=== PATIENT | male | born 1995 | race Caucasian/White ===

== ENCOUNTER 2022-12-14 09:26 | Inpatient (IN) ==
[2022-12-14] MEDS ORDERED: SODIUM CHLORIDE 0.9% 1000ML 2,000 ML IV ONE (09:47)
--- NOTE | 2022-12-14 09:54 | Emergency Department Note ---
Impression & Plan Cholecystitis, Elevated LFTs, Hyperbilirubinemia ED Provider Note NAME: CATHERINE MISTRY AGE: 27 SEX: M : 1995 ARRIVES VIA: Walk-In INFORMANT: Patient ED PROVIDER(S): Sukumar Smiley DO CHIEF COMPLAINT: abdominal pain HPI: Patient is a 27-year-old male who presents to the ER for a yellowish hue. Patient notes that symptoms started several days ago with weakness and fatigue. He did have some swelling of his left cheek which resolved. Does have a little bit of a cough. No chest pain or shortness of breath. Admits to abdominal pain in the right upper quadrant associated with vomiting. He notes it is worse with eating. Followed up with his PCP who had blood work done and he was found to have a transaminitis as well as an elevated bilirubin. Long and strep were negative. He came in today as symptoms are getting worse. Denies any dysuria, urgency, or frequency. No other exacerbating or remitting factors. PAST MEDICAL HISTORY:See Below PAST SURGICAL HISTORY:See Below FAMILY HISTORY:See Below SOCIAL HISTORY:See Below HOME MEDICATIONS:See Below ALLERGIES:See Below VITALS:See Below PHYSICAL EXAMINATION: GENERAL: Sitting up in bed, alert, well appearing, well nourished, no distress, non-toxic EYE EXAM: Scleral icterus OROPHARYNX: mucous membranes are moist LUNGS: Clear to auscultation. Normal chest wall mechanics HEART: no murmurs, S1 normal and S2 normal ABDOMEN: abdomen soft, non-tender, normo-active bowel sounds, no masses, no rebound or guarding. BACK: Back is symmetrical on inspection and there is no deformity, no midline tenderness, no CVA tenderness. SKIN: no rashes and no bruising UPPER EXTREMITIES: upper extremities are grossly normal. LOWER EXTREMITIES: No pitting edema. NEURO EXAM: Normal sensorium, cranial nerves II-XII grossly intact, normal speech, no gross weakness of arms, no gross weakness of legs. MEDICAL DECISION MAKING: Patient is a 27-year-old male who presents ER referred by PCP for transaminitis and elevated bilirubin. IV was established blood was obtained. External records were reviewed. Labs show no leukocytosis or anemia. INR was unremarkable. BMP was fairly unremarkable with the exception of a slightly elevated glucose at 120. Transaminitis of 300s with a T. bili of 6 and a direct bili of 3.4. Lipase was normal. Hepatitis panel was ordered. COVID was negative. Discussed with hospitalist Dr. Escalera, general surgery Dr. Dangelo and gastroenterology Dr. Roberson. They will evaluate the patient and recommended admission to the hospitalist. Patient was updated bedside as well. Was given IV fluids and Zosyn in case as suggested by the CT that this was cholecystitis. Triage Nursing notes reviewed. Limited review of prior medical records performed Vital Signs: reviewed and remarkable for tachy Differential diagnosis: Differential diagnoses includes but is not limited to gastritis, peptic ulcer disease, GERD, gallbladder disease, pancreatitis, small bowel obstruction, appendicitis, diverticulitis, hernia, urinary tract infection, torsion, /ectopic (if female), perforation, trauma, infectious. ER treatment provided: See below Diagnostics interpreted by me include EKG and cardiac monitoring as listed below: -Cardiac Monitoring: An order was placed for continuous cardiac monitoring. The monitor shows a rate of 101 with sinus rhythm. -ECG: none -Laboratory studies:Interpreted by me as stated above in MDM and shown below. Imaging studies: Xrays: As interpreted by me:none CTs show: CT abdomen pelvis shows cholecystitis versus duodenitis. CT abdomen pelvis per my read shows no obvious obstruction Consultation(s): As described in MDM Procedures:none Critical Care: None Past Med/Surg History Medical History Elevated LFTs No pertinent past medical history Surgical History No pertinent past surgical history Family History Grandmother (Maternal) Colorectal cancer Grandfather (Paternal) Leukemia Mother Hypertension Denies family history of Ovarian cancer Prostate cancer Myocardial infarction Breast cancer Social History Smoking Status: Former smoker Second Hand Exposure: No; Hx Alcohol Use: Yes Alcohol Intake Frequency: 2-3 x/Week Hx Substance Use: No Preferred Language: Swedish Visual Impairment: No Limitations Hearing Ability: Normal Whiskey Filterer Required: No Beliefs That Will Affect Care: None marital status: single Current Living Situation: Alone current occupational status: student How many Children do You have: 0 Feels Safe at Home: Yes Childhood Exposure to Second-Hand Smoke: No caffeine: Yes (tea) during the past year weight has: remained stable Dental Care, Regularly: Yes Physical Activity Frequency: 3-4 Times per Week Physical Activity Frequency Comment: cardio/ weight lifting Seatbelt Use: always Sunscreen Use: Yes Allergies Allergies Allergy/AdvReac Type Severity Reaction Status Date / Time No Known Allergies Allergy Unverified 12/14/22 12:15 Home Meds Home Medications Medication Instructions Recorded Confirmed fluticasone propionate 50 1 spray intranasal DAILY PRN Nasal 03/11/21 12/14/22 mcg/actuation nasal Congestion spray,suspension (24 Hour Allergy Relief) ibuprofen 200 mg tablet (Advil) 400 - 600 mg PO TID PRN Pain 12/14/22 12/14/22 Previous Rx's Medication Instructions Recorded amoxicillin 875 mg-potassium 1 tab PO BID 7 days #14 tabs 12/09/22 clavulanate 125 mg tablet Results & Data (ED) Vital Signs Vital Signs - 24 hr 12/14/22 09:28 12/14/22 10:46 Temperature 36.7 C Temperature Source Temporal Artery Scan Pulse Rate 110 H Respiratory Rate 16 Blood Pressure 139/94 Blood Pressure Mean 109 Pulse Oximetry 96 98 Oxygen Delivery Method Room Air Sepsis Recent Fever Within 48 Hours No Sepsis New/Unexplained Change in Mental Status N/A Sepsis Action Taken by Nursing No Action Required Laboratory Data 12/14/22 09:58 12/14/22 09:58 Lab Results 12/14/22 12/14/22 12/14/22 Range/Units 09:58 09:58 09:58 WBC 10.69 (4.8-10.8) K/ul RBC 5.47 (4.70-6.10) M/uL Hgb 16.1 (14.0-18.0) g/dl Hct 45.7 (42.0-52.0) % MCV 83.5 (80.0-100.0) fL MCH 29.4 (25.0-34.0) pg MCHC 35.2 (32.0-36.0) g/dL RDW Std Deviation 36.3 L (36.4-46.3) fL RDW Coeff of Denny 11.9 (11.5-14.5) % Plt Count 250 (130-400) K/uL MPV 10.7 (9.4-12.4) fL Immature Gran % (Auto) 0.6 % Neut % (Auto) 78.3 % Lymph % (Auto) 7.3 % Long % (Auto) 10.9 % Eos % (Auto) 2.5 % Baso % (Auto) 0.4 % Neut # (Auto) 8.38 H (1.40-6.50) K/uL Lymph # (Auto) 0.78 L (1.2-3.4) K/uL Long # (Auto) 1.16 H (0.11-0.59) K/uL Eos # (Auto) 0.27 (0-0.50) K/uL Baso # (Auto) 0.04 (0-0.2) K/uL Immature Gran # (Auto) 0.06 (0.01-0.20) K/uL Platelet Estimate Normal (Normal) PT 10.9 (9.0-12.0) Seconds INR 1.0 (0.9-1.1) Sodium 135 L (136-145) mmol/L Potassium 3.6 (3.5-5.1) mmol/L Chloride 96 L (98-107) mmol/L Carbon Dioxide 30 (21-32) mmol/L Anion Gap 9 (3-11) BUN 6 (6-23) mg/dl Creatinine 0.97 (0.6-1.4) mg/dl Est Cr Clr Drug Dosing 120.8 ml/min Est GFR ( Amer) 122.6 ml/min Est GFR (Non-Af Amer) 105.8 ml/min BUN/Creatinine Ratio 6.2 L (10-20) Glucose 120 H (70-99(Fasting)) mg/dl Calcium 9.7 (8.6-10.3) mg/dl Total Bilirubin 6.1 H (0.2-1.0) mg/dl Direct Bilirubin TNP AST 216 H (13-39) U/L ALT 405 H (7-52) U/L Alkaline Phosphatase 208 H (34-104) U/L Total Protein 7.7 (6.0-8.3) gm/dl Albumin 4.4 (3.4-5.0) gm/dl Lipase 32 (11-82) U/L SARS-CoV-2, RNA, NAAT (NEGATIVE) 12/14/22 12/14/22 Range/Units 12:39 12:47 WBC (4.8-10.8) K/ul RBC (4.70-6.10) M/uL Hgb (14.0-18.0) g/dl Hct (42.0-52.0) % MCV (80.0-100.0) fL MCH (25.0-34.0) pg MCHC (32.0-36.0) g/dL RDW Std Deviation (36.4-46.3) fL RDW Coeff of Denny (11.5-14.5) % Plt Count (130-400) K/uL MPV (9.4-12.4) fL Immature Gran % (Auto) % Neut % (Auto) % Lymph % (Auto) % Long % (Auto) % Eos % (Auto) % Baso % (Auto) % Neut # (Auto) (1.40-6.50) K/uL Lymph # (Auto) (1.2-3.4) K/uL Long # (Auto) (0.11-0.59) K/uL Eos # (Auto) (0-0.50) K/uL Baso # (Auto) (0-0.2) K/uL Immature Gran # (Auto) (0.01-0.20) K/uL Platelet Estimate (Normal) PT (9.0-12.0) Seconds INR (0.9-1.1) Sodium (136-145) mmol/L Potassium (3.5-5.1) mmol/L Chloride (98-107) mmol/L Carbon Dioxide (21-32) mmol/L Anion Gap (3-11) BUN (6-23) mg/dl Creatinine (0.6-1.4) mg/dl Est Cr Clr Drug Dosing ml/min Est GFR ( Amer) ml/min Est GFR (Non-Af Amer) ml/min BUN/Creatinine Ratio (10-20) Glucose (70-99(Fasting)) mg/dl Calcium (8.6-10.3) mg/dl Total Bilirubin (0.2-1.0) mg/dl Direct Bilirubin 3.4 H AST (13-39) U/L ALT (7-52) U/L Alkaline Phosphatase (34-104) U/L Total Protein (6.0-8.3) gm/dl Albumin (3.4-5.0) gm/dl Lipase (11-82) U/L SARS-CoV-2, RNA, NAAT NEGATIVE (NEGATIVE) Administered Medications Discontinued Medications Sodium Chloride (Nss 1000ml) 2,000 mls @ 999 mls/hr IV .Q2H1M ONE Stop: 12/14/22 11:47 Last Admin: 12/14/22 10:06 Dose: 999 mls/hr Documented By: SACHI Piperacillin Sod/Tazobactam Sod (Zosyn) 4.5 gm in 120 mls @ 240 mls/hr IV NOW ONE Stop: 12/14/22 12:51 Last Admin: 12/14/22 12:41 Dose: 240 mls/hr Documented By: BLADIMIR Ioversol (Optiray 350 100ml) 88 ml IV ONCE ONE Stop: 12/14/22 11:39 Last Admin: 12/14/22 11:39 Dose: 88 ml Documented By: REGINE Imaging Data Radiologist's Impression: Abdomen/Pelvis CT 12/14/22 09:[address] WITH IV CONTRAST CT DOSE: 1163.68 mGycm HISTORY: Acute right-sided abdominal pain with jaundice jaundice ruq abd pain TECHNIQUE: Multiaxial CT images of the abdomen and pelvis were performed following the IV administration of 88 cc of Optiray, A dose lowering technique was utilized adhering to the principles of ALARA. COMPARISON STUDY: Liver ultrasound 12/13/2022 FINDINGS: Clear lung bases. No pneumatosis or pneumoperitoneum. Unremarkable spleen, adrenal glands and pancreas. The liver is within normal limits. Patency of the hepatic and portal veins. Mild nonspecific wall thickening of the gallbladder with additional wall thickening of the common bile duct. Inflammatory stranding within the rebeka hepatis is noted with periportal lymph nodes measuring up to 1.4 x 2.8 cm. Inflammatory stranding surrounds the duodenum and pancreaticoduodenal groove. Unremarkable kidneys without hydronephrosis. Unremarkable urinary bladder. Aorta and IVC are unremarkable. No bowel obstruction. Retained enteric contrast within the large bowel. Normal appendix. Unremarkable soft tissues. There is no acute fracture. IMPRESSION: 1. Nonspecific gallbladder wall thickening is noted with inflammatory stranding within the rebeka hepatis surrounding the duodenum and extending into the pancreaticoduodenal groove. Findings may be secondary to acute cholecystitis versus duodenitis. 2. Mild wall thickening of the common bile duct is likely reactive. Correlate with laboratory analysis to exclude cholangitis. 3. Mild periportal lymphadenopathy, likely reactive. 4. No bowel obstruction or pneumoperitoneum. 5. Normal appendix. ACT 112: Negative or not required by law. The above report was generated using voice recognition software. It may contain grammatical, syntax or spelling errors. Electronically signed by: Sang Triplett M.D. 12/14/2022 12:09 PM Discharge Plan Visit Data Chief Complaint: Illness Stated Complaint: ABDPAIN,NAUSEA,EDEMA IN MOUTH,FATIGUE,JUANDICE12/13 ED Provider: Sukumar Smiley Discharge Problem: Cholecystitis, Elevated LFTs, Hyperbilirubinemia Forms Stand Alone Forms: [facility] [place] Novalact Prescriptions Prescriptions: No Action fluticasone propionate [24 Hour Allergy Relief] 50 mcg/actuation spray,suspension 1 spray intranasal DAILY PRN (Reason: Nasal Congestion) Rx Instructions: administer into each nostril amoxicillin-pot clavulanate 875-125 mg tablet 1 tab PO BID 7 Days Qty: 14 0RF Hold Instructions: Elevated LFT ibuprofen [Advil] 200 mg Tablet 400 - 600 mg PO TID PRN (Reason: Pain) Referrals Referrals: Anton Jain CRNP [Primary Care Provider] -
[2022-12-14 10:49] LABS: Prothrombin Time 10.9 Seconds (9.0-12.0)
[2022-12-14 11:30] LABS: Basophils # (auto) 0.04 K/uL (0-0.2); Basophils % (auto) 0.4 %; Eosinophils # (auto) 0.27 K/uL (0-0.50); Eosinophils % (auto) 2.5 %; Hematocrit (blood only) 45.7 % (42.0-52.0); Hemoglobin 16.1 g/dl (14.0-18.0); Immature Granulocytes # (auto) 0.06 K/uL (0.01-0.20); Immature Granulocytes % (auto) 0.6 %; Lymphocytes # (auto) 0.78 K/uL (1.2-3.4); Lymphocytes % (auto) 7.3 %; Mean Corpuscular Hemoglobin 29.4 pg (25.0-34.0); Mean Corpuscular Hgb Conc 35.2 g/dL (32.0-36.0); Mean Corpuscular Volume 83.5 fL (80.0-100.0); Mean Platelet Volume 10.7 fL (9.4-12.4); Monocytes # (auto) 1.16 K/uL (0.11-0.59); Monocytes % (auto) 10.9 %; Neutrophils # (auto) 8.38 K/uL (1.40-6.50); Neutrophils % (auto) 78.3 %; Platelet Count 250 K/uL (130-400); Platelet Estimate Normal (Normal); RDW Coefficient of Variation 11.9 % (11.5-14.5); RDW Standard Deviation 36.3 fL (36.4-46.3); Red Blood Count 5.47 M/uL (4.70-6.10); White Blood Count 10.69 K/ul (4.8-10.8)
[2022-12-14] MEDS ORDERED: OPTIRAY 350 100ml IV ONE (11:38)
--- NOTE | 2022-12-14 12:11 | CT Scan Report ---
ABDOMEN AND PELVIS CT WITH IV CONTRAST CT DOSE: 1163.68 mGycm HISTORY: Acute right-sided abdominal pain with jaundice jaundice ruq abd pain TECHNIQUE: Multiaxial CT images of the abdomen and pelvis were performed following the IV administrat ion of 88 cc of Optiray, A dose lowering technique was utilized adhering to the principles of ALARA. COMPARISON STUDY: Liver ultrasound 12/13/2022 FINDINGS: Clear lung bases. No pneumatosis or pneumoperitoneum. Unremarkable spleen, adrenal glands a nd pancreas. The liver is within normal limits. Patency of the hepatic and portal veins. Mild nonspec ific wall thickening of the gallbladder with additional wall thickening of the common bile duct. Infl ammatory stranding within the rebeka hepatis is noted with periportal lymph nodes measuring up to 1.4 x 2.8 cm. Inflammatory stranding surrounds the duodenum and pancreaticoduodenal groove. Unremarkable kidneys without hydronephrosis. Unremarkable urinary bladder. Aorta and IVC are unremark able. No bowel obstruction. Retained enteric contrast within the large bowel. Normal appendix. Unrema rkable soft tissues. There is no acute fracture. IMPRESSION: 1. Nonspecific gallbladder wall thickening is noted with inflammatory stranding within the rebeka hepa tis surrounding the duodenum and extending into the pancreaticoduodenal groove. Findings may be secon bladimir to acute cholecystitis versus duodenitis. 2. Mild wall thickening of the common bile duct is likely reactive. Correlate with laboratory analysi s to exclude cholangitis. 3. Mild periportal lymphadenopathy, likely reactive. 4. No bowel obstruction or pneumoperitoneum. 5. Normal appendix. ACT 112: Negative or not required by law. The above report was generated using voice recognition software. It may contain grammatical, syntax o r spelling errors. Electronically signed by: Sang Triplett M.D. 12/14/2022 12:09 PM
[2022-12-14 12:14] LABS: Alanine Aminotransferase 405 U/L (7-52); Albumin Level 4.4 gm/dl (3.4-5.0); Alkaline Phosphatase 208 U/L (34-104); Anion Gap 9 (3-11); Aspartate Aminotransferase 216 U/L (13-39); BUN Creatinine Ratio 6.2 (10-20); Bilirubin,Total 6.1 mg/dl (0.2-1.0); Blood Urea Nitrogen 6 mg/dl (6-23); Calcium 9.7 mg/dl (8.6-10.3); Carbon Dioxide 30 mmol/L (21-32); Chloride 96 mmol/L (98-107); Creatinine Clr Calc Pharmacy 120.8 ml/min; Est GFR (African American) 122.6 ml/min; Est GFR (Non-African American) 105.8 ml/min; Glucose 120 mg/dl (70-99(Fasting)); Lipase 32 U/L (11-82); Potassium 3.6 mmol/L (3.5-5.1); Sodium 135 mmol/L (136-145); Total Protein 7.7 gm/dl (6.0-8.3)
[2022-12-14] MEDS ORDERED: PIPERACILLIN/TAZOBACTAM 4.5 GM/120 ML BAG IV ONE (12:22)
--- NOTE | 2022-12-14 13:25 | Surgery Consultation ---
Date of Consultation December 14, 2022 Assessment & Plan (1) Elevated LFTs: pt is a 27 year-old male who presents to ER with one week history nausea, vomiting, fatigue. elevated LFTs, T, bile 6.1. IMP: Elevated LFTs, could not R/O acute cholecystitis, plan, Medicine team will admit pt to hospital, consult GI, HIDA scan per-GI doctor. conservative treatment now, NPO, IV fluid, repeat labs in morning, pt agreed with the plan, I answered all questions, D/W ER attending. will f/u History of Present Illness Reason for Consultation: cholecystitis Requesting Physician: Sukumar Vizcarra History of Present Illness CHIEF COMPLAINT: abdominal pain HPI: Patient is a 27-year-old male who presents to the ER for a yellowish hue. Patient notes that symptoms started several days ago with weakness and fatigue. He did have some swelling of his left cheek which resolved. Does have a little bit of a cough. No chest pain or shortness of breath. Admits to abdominal pain in the right upper quadrant associate with vomiting. He notes it is worse with eating. Followed up with his PCP who had blood work done and he was found to have a transaminitis as well as an elevated bilirubin. [place] and strep were negative. He came in today as symptoms are getting worse. Denies any dysuria urgency or frequency. No other exacerbating or remitting factors. I ( Roscoe Dangelo MD ) got a call for consult cholecystitis, I reviewed pt's H/P, labs and CT scan with pt, pt has no significant RUQ pain, some nausea and vomiting 2 days ago, no vomiting today, some chills and fever, but today no fever. 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, urine dark color, pt denies cough, no chest pain, but left face swelling 1 week ago, Allergies Allergy/AdvReac Type Severity Reaction Status Date / Time No Known Allergies Allergy Unverified 12/14/22 12:15 Home Medications Medication Instructions Recorded Confirmed Type fluticasone propionate 50 1 spray intranasal DAILY PRN Nasal 03/11/21 12/14/22 History mcg/actuation nasal Congestion spray,suspension (24 Hour Allergy Relief) amoxicillin 875 mg-potassium 1 tab PO BID 7 days #14 tabs 12/09/22 12/14/22 Rx clavulanate 125 mg tablet ibuprofen 200 mg tablet (Advil) 400 - 600 mg PO TID PRN Pain 12/14/22 12/14/22 History Patient History Medical History Elevated LFTs No pertinent past medical history Surgical History No pertinent past surgical history Family History Grandmother (Maternal) Colorectal cancer Grandfather (Paternal) Leukemia Mother Hypertension Denies family history of Ovarian cancer Prostate cancer Myocardial infarction Breast cancer Social History Smoking Status: Former smoker Second Hand Exposure: No; Hx Alcohol Use: Yes Alcohol Intake Frequency: 2-3 x/Week Hx Substance Use: No Preferred Language: Japanese Visual Impairment: No Limitations Hearing Ability: Normal Seismograph Observer Required: No Beliefs That Will Affect Care: None marital status: single Current Living Situation: Alone current occupational status: student How many Children do You have: 0 Feels Safe at Home: Yes Childhood Exposure to Second-Hand Smoke: No caffeine: Yes (tea) during the past year weight has: remained stable Dental Care, Regularly: Yes Physical Activity Frequency: 3-4 Times per Week Physical Activity Frequency Comment: cardio/ weight lifting Seatbelt Use: always Sunscreen Use: Yes Review of Systems Constitutional: as per Subjective / HPI Eyes: as per Subjective / HPI Respiratory: as per Subjective / HPI Cardiovascular: as per Subjective / HPI Gastrointestinal: as per Subjective / HPI Genitourinary: + as per Subjective / HPI Neurologic: as per Subjective / HPI Psychiatric: as per Subjective / HPI Endocrine: as per Subjective / HPI Hematologic / Lymphatic: as per Subjective / HPI Physical Exam Constitutional: WD/WN, vitals as above Eyes: PERRL, conjunctivae normal, anicteric sclerae Neck: trachea midline, no thyromegaly Respiratory: normal respiratory effort, lungs clear to auscultation Cardiovascular: RRR, no murmur, no edema Gastrointestinal (Abdomen): soft, no significant tenderness at RUQ, no rebound pain, no distend, BS +, Musculoskeletal: no cyanosis or clubbing, extremities motor strength 5/5 Neurologic: patellar DTR's 2+ bilat, sensation intact Psychiatric: A+Ox3, euthymic affect Results & Data Vital Signs (Past 12 Hours) Vital Signs Temp Pulse Resp BP Pulse Ox O2 Del Method 12/14/22 10:46 98 Room Air 12/14/22 09:28 36.7 C 110 H 16 139/94 96 Laboratory Results Abnormal lab results 12/14/22 12/14/22 12/14/22 Range/Units 09:58 09:58 12:47 RDW Std Deviation 36.3 L (36.4-46.3) fL Neut # (Auto) 8.38 H (1.40-6.50) K/uL Lymph # (Auto) 0.78 L (1.2-3.4) K/uL [place] # (Auto) 1.16 H (0.11-0.59) K/uL Sodium 135 L (136-145) mmol/L Chloride 96 L (98-107) mmol/L BUN/Creatinine Ratio 6.2 L (10-20) Glucose 120 H (70-99(Fasting)) mg/dl Total Bilirubin 6.1 H (0.2-1.0) mg/dl Direct Bilirubin 3.4 H (0-0.2) mg/dl AST 216 H (13-39) U/L ALT 405 H (7-52) U/L Alkaline Phosphatase 208 H (34-104) U/L Diagnostic Findings ABDOMEN AND PELVIS CT WITH IV CONTRAST CT DOSE: 1163.68 mGycm HISTORY: Acute right-sided abdominal pain with jaundice jaundice ruq abd pain TECHNIQUE: Multiaxial CT images of the abdomen and pelvis were performed following the IV administration of 88 cc of Optiray, A dose lowering technique was utilized adhering to the principles of ALARA. COMPARISON STUDY: Liver ultrasound 12/13/2022 FINDINGS: Clear lung bases. No pneumatosis or pneumoperitoneum. Unremarkable spleen, adrenal glands and pancreas. The liver is within normal limits. Patency of the hepatic and portal veins. Mild nonspecific wall thickening of the gallbladder with additional wall thickening of the common bile duct. Inflammatory stranding within the rebeka hepatis is noted with periportal lymph nodes measuring up to 1.4 x 2.8 cm. Inflammatory stranding surrounds the duodenum and pancreaticoduodenal groove. Unremarkable kidneys without hydronephrosis. Unremarkable urinary bladder. Aorta and IVC are unremarkable. No bowel obstruction. Retained enteric contrast within the large bowel. Normal appendix. Unremarkable soft tissues. There is no acute fracture. IMPRESSION: 1. Nonspecific gallbladder wall thickening is noted with inflammatory stranding within the rebeka hepatis surrounding the duodenum and extending into the pancreaticoduodenal groove. Findings may be secondary to acute cholecystitis versus duodenitis. 2. Mild wall thickening of the common bile duct is likely reactive. Correlate with laboratory analysis to exclude cholangitis. 3. Mild periportal lymphadenopathy, likely reactive. 4. No bowel obstruction or pneumoperitoneum. 5. Normal appendix. ACT 112: Negative or not required by law.
--- NOTE | 2022-12-14 13:49 | History & Physical Report ---
Date of Service December 14, 2022 Assessment & Plan (1) Elevated LFTs: Plan: 27 yo M with elevated LFTs, total bilirubin with worsening abdominal pain after eating concerning for acute cholecystitis +/- cholangitis Acute/unstable - Admit to med/surg - Keep NPO - Reviewed PCP notes from 12/09 and 12/13 - Reviewed CBC and CMP today - Start on LR at 125 ml/hr - Provide pain control with Dilaudid 1mg IV q3h prn abd pain - Antiemetics with Zofran 4mg IV q4h prn n/v - Formal consult placed to GI, appreciate assistance, recommendation is to proceed with ERCP - Dr. Wilburn to perform procedure - Consult placed also to general surgery, Dr. Dangelo, appreciate assistance - Continue empiric broad spectrum antibiotics with Zosyn 3.375mg IV q8 - IV APAP for mild pain, fever, headache - Repeat CBC with diff and CMP in AM Plan Low risk for DVT, pt can ambulate. In addition, patient may need to proceed with surgical intervention, therefore defer on chemoprophylaxis. Above plan of care has been d/w Dr. Jones who has also seen and evaluated this patient. Further orders will be implemented as warranted. History of Present Illness Chief Complaint: abdominal pain, n/v Primary Care Provider: LANRE Warren Melvin Denney is a 27 yo WM with no past medical history who presented to the ER today c/o RUQ abdominal pain, worse after eating with associated n/v. Patient reports that he started with nonspecific symptoms last of left facial swelling in the area of his parotid gland that was also associated with a sore throat and dry cough. He contacted his PCP, he was started on an empiric course of Augmentin and symptoms resolved after 2 days. On Monday into Monday, he began experiencing nausea, increased belching, and abdominal pain worse after eating. He notes that he wasn't really eating or drinking, felt more fatigued and feverish. He contacted his PCP on Monday for follow up and was seen on Monday12/13/22 and labwork was ordered. Patient contacted this AM on 12/14 and notified he had elevated LFTs including an elevated total bilirubin. He had a RUQ ultrasound which showed a mildly distended gallbladder w/o cholelithiasis or sonographic evidence of acute cholecystitis. No biliary ductal dilatation was reported. He reported feeling slightly better yesterday and attempted to have some chicken broth and drank 2 Ensures. Unfortunately, this morning, patient woke up and vomited. He subsequently presented to the ER today for further evaluation. His work up today demonstrates persistently elevated LFTs and total bilirubin of 6.1. He underwent a CT of his abdomen and pelvis which shows nonspecific gallbladder wall thickening with inflammatory stranding within the rebeka hepatis surrounding the duodenum and extending into the pancreaticoduodenal groove as well as mild wall thickening of the common bile duct. He was medicated with a dose of Zosyn to cover for possible cholangitis, as well IVF and has been referred to the hospitalists for admission. Case has also been discussed with GI and general surgery. Allergies Allergy/AdvReac Type Severity Reaction Status Date / Time No Known Allergies Allergy Unverified 12/14/22 12:15 Home Medications Medication Instructions Recorded Confirmed Type fluticasone propionate 50 1 spray intranasal DAILY PRN Nasal 03/11/21 12/14/22 History mcg/actuation nasal Congestion spray,suspension (24 Hour Allergy Relief) amoxicillin 875 mg-potassium 1 tab PO BID 7 days #14 tabs 12/09/22 12/14/22 Rx clavulanate 125 mg tablet ibuprofen 200 mg tablet (Advil) 400 - 600 mg PO TID PRN Pain 12/14/22 12/14/22 History Past Med/Surg History Medical History Elevated LFTs No pertinent past medical history Surgical History No pertinent past surgical history Family History Grandmother (Maternal) Colorectal cancer Grandfather (Paternal) Leukemia Mother Hypertension Denies family history of Ovarian cancer Prostate cancer Myocardial infarction Breast cancer Social History Smoking Status: Never smoker Second Hand Exposure: No; Hx Alcohol Use: No Hx Substance Use: No Preferred Language: Luxembourgish Communication Ability: Effective Visual Impairment: No Limitations Hearing Ability: Normal 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 Beliefs That Will Affect Care: None marital status: single Current Living Situation: Significant Other current occupational status: student How many Children do You have: 0 Feels Safe at Home: Yes Safety Concerns: Feels Safe At This Time Childhood Exposure to Second-Hand Smoke: No caffeine: Yes (tea) during the past year weight has: remained stable Dental Care, Regularly: Yes Physical Activity Frequency: 3-4 Times per Week Physical Activity Frequency Comment: cardio/ weight lifting Seatbelt Use: always Sunscreen Use: Yes Assistive Devices: Glasses Physical Exam Physical Exam: GENERAL: 27 yo well-developed, well-nourished WM. NAD. LUNGS: Clear to auscultation bilaterally. No w/r/r CARDIOVASCULAR: Regular rate and rhythm. ABDOMEN: Soft, nondistended, tender to palpation in RUQ. No rigidity, rebound, or guarding. BS normoactive x 4 quad. EXTREMITIES: No edema. Non-tender. Peripheral pulses +2/4. SKIN: b/l scleral icterus Results & Data Results & Data Vital Signs (Past 12 Hours) Vital Signs Temp Pulse Resp BP Pulse Ox O2 Del Method 12/14/22 10:46 98 Room Air 12/14/22 09:28 36.7 C 110 H 16 139/94 96 Laboratory Results 12/14/22 09:58 12/14/22 09:58 Diagnostic Findings Abdomen/Pelvis CT 12/14/22 09:[address] WITH IV CONTRAST CT DOSE: 1163.68 mGycm HISTORY: Acute right-sided abdominal pain with jaundice jaundice ruq abd pain TECHNIQUE: Multiaxial CT images of the abdomen and pelvis were performed following the IV administration of 88 cc of Optiray, A dose lowering technique was utilized adhering to the principles of ALARA. COMPARISON STUDY: Liver ultrasound 12/13/2022 FINDINGS: Clear lung bases. No pneumatosis or pneumoperitoneum. Unremarkable spleen, adrenal glands and pancreas. The liver is within normal limits. Patency of the hepatic and portal veins. Mild nonspecific wall thickening of the gallbladder with additional wall thickening of the common bile duct. Inflammatory stranding within the rebeka hepatis is noted with periportal lymph nodes measuring up to 1.4 x 2.8 cm. Inflammatory stranding surrounds the duodenum and pancreaticoduodenal groove. Unremarkable kidneys without hydronephrosis. Unremarkable urinary bladder. Aorta and IVC are unremarkable. No bowel obstruction. Retained enteric contrast within the large bowel. Normal appendix. Unremarkable soft tissues. There is no acute fracture. IMPRESSION: 1. Nonspecific gallbladder wall thickening is noted with inflammatory stranding within the rebeka hepatis surrounding the duodenum and extending into the pancreaticoduodenal groove. Findings may be secondary to acute cholecystitis versus duodenitis. 2. Mild wall thickening of the common bile duct is likely reactive. Correlate with laboratory analysis to exclude cholangitis. 3. Mild periportal lymphadenopathy, likely reactive. 4. No bowel obstruction or pneumoperitoneum. 5. Normal appendix. ACT 112: Negative or not required by law. The above report was generated using voice recognition software. It may contain grammatical, syntax or spelling errors. Electronically signed by: Sang Triplett M.D. 12/14/2022 12:09 PM Supervising Physician Co-Signing Physician Notes Patient seen and examined, chart reviewed, case discussed with Linda Araiza PA-C and I agree with the assessment and plan as above except as otherwise noted Labs and images reviewed Melvin is a 27-year-old male who presents with right upper quadrant pain worsened with meals and scleral icterus. CT shows nonspecific gallbladder wall thickening suspicious for acute cholecystitis, mild wall thickening of the common bile duct. LFTs and bilirubin are elevated. Surgery and GI are consulted, anticipate ERCP tomorrow and subsequent cholecystectomy. Continue Zosyn every 8 for cholecystitis. N.p.o at midnight, pain control, fluids as noted. Agree with recommendations and management above. At bedside exam patient has tenderness on deep right upper quadrant palpation, otherwise abdomen is soft and nontender. Heart rate is regular, lungs are clear. Warm and well- perfused. Scleral icterus is present, mild. PG Care Time/CCT Total # of Minutes Spent Total Time Spent with Patient: Total time spent is greater than 50% in coordination of care (as documented) at patient's floor/unit and/or counseling patient: Coding Level of Care Code 86620 INT INP/OBS CARE MIN Diagnoses Elevated LFTs R79.89
--- NOTE | 2022-12-14 14:45 | Gastrointestinal Consultation ---
Date of Consultation December 14, 2022 Assessment & Plan (1) Hyperbilirubinemia: (2) Elevated LFTs: Plan Discussed with advanced endo attending Dr. Wilburn about his labs and decision was made for ercp tomorrow Supervising Physician Co-Signing Physician Notes 27 yo male with fatigue, post prandial pain since end of last, with parotid swelling on augmentin since Monday, admitted for abd pain, fatigue, and a cholestatic lft pattern on labs with imaging concerning for cholecystitis. Currently he hemodynamically stable other than mild tachycardia that appears to be a sinus rhythm. Given the degree of tb rise (over 4) and wbc count elevation, will plan for ercp tomorrow afternoon. No reports of prior episodes of pancreatitis. Ok to try liqids/soft thru midnight then npo after midnite. Continue IV fluids, iv zosyn for now. 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 He is with his significant other and mother in the ED. He reports at the end of last week he felt fatigued and had a feeling like his left cheek was swollen and a sore throat - diagnosed with ?parotitis started on augmentin, strep and ebv negative as part of his work-up. On monday, his fiance noted he was sweaty and had a temp to 100 despite taking Augmentin. He also noted during this time feeling a bit run down. He also felt since /Mondayof last week that he was having post prandial pain in his abdomen on both sides but a little more prominent in his right upper quadrant. Given persistence of his symptoms, saw his pcp as an outpatient yesterday with a work- up showing a wbc count 12, tb elevation, ast/alt/alk phos elevation and an abd martin limited with findings concerning for cholecystitis. He came into the er this am given lab findings and continued ongoing symptoms of fatigue, jaundice, and abdominal pain more prominent in the ruq that is primarily post prandial. 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 He Lives with his significant other and two pets without any scratches he recalls from his pets or recent sick contacts at home. The only regular medication he uses is a nasal spray for allergy type symptoms. Workup in the ed thus far shows him to be afebile, slightly tachycardic, stable bp, and wbc count now normalized from 12 yesterday to 10, tb is 6 with ongoing alt elevation in addition to mild ast/alk phos elevation (in high 100-200 range). He does no appear to be in clinical distress, exam significant for mild scleral icterus. No prior episodes of pancreatitis reported. As a result of the issue with his cheek, he does feel he has a slightly limited ability to open his jaw. 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, living with his significant other and two pets, no drug use reported Fam hx:none Allergies Allergy/AdvReac Type Severity Reaction Status Date / Time No Known Allergies Allergy Unverified 12/14/22 12:15 Home Medications Medication Instructions Recorded Confirmed Type fluticasone propionate 50 1 spray intranasal DAILY PRN Nasal 03/11/21 12/14/22 History mcg/actuation nasal Congestion spray,suspension (24 Hour Allergy Relief) amoxicillin 875 mg-potassium 1 tab PO BID 7 days #14 tabs 12/09/22 12/14/22 Rx clavulanate 125 mg tablet ibuprofen 200 mg tablet (Advil) 400 - 600 mg PO TID PRN Pain 12/14/22 12/14/22 History Patient History Medical History Elevated LFTs No pertinent past medical history Surgical History No pertinent past surgical history Family History Grandmother (Maternal) Colorectal cancer Grandfather (Paternal) Leukemia Mother Hypertension Denies family history of Ovarian cancer Prostate cancer Myocardial infarction Breast cancer Social History Smoking Status: Former smoker Second Hand Exposure: No; Hx Alcohol Use: Yes Alcohol Intake Frequency: 2-3 x/Week Hx Substance Use: No Preferred Language: Rwandan Visual Impairment: No Limitations Hearing Ability: Normal Manager Inspection Required: No Beliefs That Will Affect Care: None marital status: single Current Living Situation: Alone current occupational status: student How many Children do You have: 0 Feels Safe at Home: Yes Childhood Exposure to Second-Hand Smoke: No caffeine: Yes (tea) during the past year weight has: remained stable Dental Care, Regularly: Yes Physical Activity Frequency: 3-4 Times per Week Physical Activity Frequency Comment: cardio/ weight lifting Seatbelt Use: always Sunscreen Use: Yes Review of Systems Review of Systems: All systems reviewed & are unremarkable except as noted in HPI & below Physical Exam Physical Exam: Well nourished male in nad Eyes: Mild scleral icterus Neck: Slight fullness noted in his submandibular area but no overt lymph nodes noted Cardiovascular: Tachycardic but normal rhythm Gastrointestinal (Abdomen): Soft nt nd, no rebound or guarding, no ascites noted Skin: No overt jaundice noted Neurologic: Alert Psychiatric: Normal affect Results & Data Vital Signs (Past 12 Hours) Vital Signs Temp Pulse Resp BP Pulse Ox O2 Del Method 12/14/22 10:46 98 Room Air 12/14/22 09:28 36.7 C 110 H 16 139/94 96 Laboratory Results TB 6 AST/ALT/Alk phos 200 range WBC now normal, 10 yesterday Lipase normal Imaging: Abd martin - cholecystis, normal cbd CT Abd with contrast- cholecystitis, ? mild inflammation around duodenum, bile ducts Medications Administered IV abx, IV fluids
[2022-12-14] MEDS ORDERED: ONDANSETRON INJ 2 MG/ML 2 ML VIAL IV PRN (15:52)
[2022-12-14] MEDS ORDERED: ACETAMINOPHEN 1,000 MG/100 ML VIAL IV PRN (15:52)
[2022-12-14] MEDS ORDERED: HYDROmorphone INJ 1 MG/ML SYRINGE IV PRN (15:52)
[2022-12-14] MEDS: LACTATED RINGER'S 1,000 ML IV SCH ×2 (16:09→23:17)
[2022-12-14] MEDS: PIPERACILLIN/TAZOBACTAM 3.375 GM in DEXTROSE 5% 100 ML IV SCH (17:15)
[2022-12-14 17:26] LABS: Appearance Urine Clear (Clear); Bacteria Urine Automated Negative (Negative); Blood Urine Negative (Negative); Cast Urine Automated 0 /lpf (0-5); Color Urine Dark Yellow; Epithelial Cell Urine Auto 0-5 /lpf (0-5); Glucose Urine UA Negative (Negative); Ketones Urine Trace (Negative); Leukocyte Esterase Urine Negative (Negative); Nitrite Urine Positive (Negative); Protein Urine Negative (Negative); RBC Urine Automated 0-4 /hpf (0-4); Specific Gravity Urine > 1.045 (1.000-1.030); Urobilinogen Urine Negative (Negative); pH Urine 7.5 (4.5-7.5)
[2022-12-14 17:28] LABS: Bilirubin Urine 2+ (Negative)
[2022-12-15] MEDS: PIPERACILLIN/TAZOBACTAM 3.375 GM in DEXTROSE 5% 100 ML IV SCH ×3 (00:57→17:37)
[2022-12-15] MEDS: LACTATED RINGER'S 1,000 ML IV SCH ×2 (06:24→13:59)
[2022-12-15 06:42] LABS: Basophils # (auto) 0.03 K/uL (0-0.2); Basophils % (auto) 0.3 %; Eosinophils # (auto) 0.44 K/uL (0-0.50); Eosinophils % (auto) 4.7 %; Hematocrit (blood only) 40.3 % (42.0-52.0); Hemoglobin 14.4 g/dl (14.0-18.0); Immature Granulocytes # (auto) 0.04 K/uL (0.01-0.20); Immature Granulocytes % (auto) 0.4 %; Lymphocytes # (auto) 1.27 K/uL (1.2-3.4); Lymphocytes % (auto) 13.5 %; Mean Corpuscular Hemoglobin 29.6 pg (25.0-34.0); Mean Corpuscular Hgb Conc 35.7 g/dL (32.0-36.0); Mean Corpuscular Volume 82.9 fL (80.0-100.0); Mean Platelet Volume 10.3 fL (9.4-12.4); Monocytes # (auto) 1.11 K/uL (0.11-0.59); Monocytes % (auto) 11.8 %; Neutrophils # (auto) 6.51 K/uL (1.40-6.50); Neutrophils % (auto) 69.3 %; Platelet Count 224 K/uL (130-400); RDW Coefficient of Variation 12.1 % (11.5-14.5); RDW Standard Deviation 36.7 fL (36.4-46.3); Red Blood Count 4.86 M/uL (4.70-6.10)
[2022-12-15 07:05] LABS: Albumin Globulin Ratio 1.4 (0.9-2); Albumin Level 3.6 gm/dl (3.4-5.0); Bilirubin,Total 4.9 mg/dl (0.2-1.0); Creatinine Clr Calc Pharmacy 117.1 ml/min; Est GFR (African American) 118.2 ml/min; Globulin 2.5 gm/dl (2.5-4.0); Potassium 3.5 mmol/L (3.5-5.1); Total Protein 6.1 gm/dl (6.0-8.3)
--- NOTE | 2022-12-15 10:01 | Gastroenterology Progress Note ---
Date of Service December 15, 2022 Assessment & Plan (1) Hyperbilirubinemia: Plan: Likely secondary to choledocholithiasis, possible cholangitis (el WBC on the day prior to admission, subjective hx of chills). (2) Elevated LFTs: Plan ERCP this afternoon by Dr. Wilburn. Continue Zosyn. Continue NPO, IV fluids. Further recommendations to follow ERCP. Admission and Anticipated Discharge Date Admission Date: December 14, 2022 Supervising Physician Co-Signing Physician Notes Downtrending lft's, normalized wbc count. He is feeling about the same. Continuing with abx. Consider sending mumps igm. Likely Eus+/- ercp later today. Subjective 27 yr old male admitted yesterday for cholecystitis w likely choledocholithiasis/cholangitis. Sweats, mild right sided abd discomfort nausea since last Monday. Also had a swollen, tender left facial cheek at that time which has resolved. Today, minimal abd discomfort, no jaundice or fevers. Is NPO . T Bili 6.1 yesterday ->4.9 today. AST 216->120, ALT 405->276, ALk PHos 208->176. Lipase normal. Review of Systems Review of Systems: ROS: Gen: Denies weakness, fevers, weight loss Eyes: No eye redness, or pain, no recent vision changes Resp: No SOB, no cough Cardio: No palpitations/irregular beats, no chest pain GI: No abdominal pain, no nausea/vomiting : Denies pain on urination Skin: No jaundice, itching or new rashes Physical Exam Constitutional: well developed and cooperative Eyes: PERRL, conjunctivae normal, anicteric sclerae Neck: trachea midline, no thyromegaly Respiratory: normal respiratory effort, lungs clear to auscultation Cardiovascular: RRR, no murmur, no edema Gastrointestinal (Abdomen): Inspection/Auscultation: abdomen normal to inspection and + hypoactive bowel sounds; abdomen not distended Percussion/Palpation: + abdomen tender (Mild upper abd tederess. No signs of acute abdomen.) and abdomen soft; no guarding and abdomen not rigid Skin: no rashes, warm and dry Neurologic: PERRL, EOMI, accommodation nl, no face palsy, no dysarthria Psychiatric: A+Ox3, euthymic affect Lymphatic: no cervical or axillary lymphadenopathy Results & Data Vital Signs (Past 12 Hours) Vital Signs Temp Pulse Resp BP Pulse Ox O2 Del Method 12/15/22 07:16 37 C 80 18 121/77 94 Room Air Laboratory Results WBC 9.4, Hb 14.4, Hct 40.3, Plts 224, Na 138, K 3.5, Cl 101 CO2 27, BUN8, Cr 1, glucose 95 Diagnostic Findings CTAP w IV 12/14/22: 1. Nonspecific gallbladder wall thickening is noted with inflammatory stranding within the rebeka hepatis surrounding the duodenum and extending into the pancreaticoduodenal groove. Findings may be secondary to acute cholecystitis versus duodenitis. 2. Mild wall thickening of the common bile duct is likely reactive. Correlate with laboratory analysis to exclude cholangitis. 3. Mild periportal lymphadenopathy, likely reactive. 4. No bowel obstruction or pneumoperitoneum. 5. Normal appendix.
[2022-12-15 12:27] LABS: HBSAG NON-REACTIVE (NON-REACTIVE); Hepatitis A Antibody IgM NON-REACTIVE (NON-REACTIVE); Hepatitis B Core Antibody IgM NON-REACTIVE (NON-REACTIVE)
--- NOTE | 2022-12-15 12:47 | Hospitalist Progress Note ---
Date of Service December 15, 2022 Assessment & Plan (1) Elevated LFTs: Plan: 27 yo M with elevated LFTs in cholestatic pattern with worsening abdominal pain and N/V, fevers/chills, leukocytosis after eating concerning for acute cholecystitis +/- cholangitis Acute/unstable RUQ US normal CT abd/pel with possible acute jamison: Nonspecific gallbladder wall thickening is noted with inflammatory stranding within the rebeka hepatis surrounding the duodenum and extending into the pancreaticoduodenal groove. Findings may be secondary to acute cholecystitis versus duodenitis.Mild wall thickening of the common bile duct is likely reactive. Correlate with laboratory analysis to exclude cholangitis.Mild periportal lymphadenopathy, likely reactive. LFTs trending downward today but remain elevated Monospot neg, EBV panel shows old infection, Hepatitis viral panel pending Has a h/o elevated AST and ALT only in 2020 thought to be from EtOH use. No fatty liver on US or CT Could be acute jamison/cholangitis but could also be medication reaction to Augmen tin, liver toxicity from APAP use? -add on APAP level to AM labs -Appreciate GI consult-going for ERCP today -continue ZOsyn for acute jamison/cholangitis -Surgery consulted in case of need for cholecystectomy -follow LFTs -continue IVFs, keeping NPO for now -add on IV PPI in case of duodenitis and with ongoing epigastric pains-was taking ibuprofen (2) Parotitis: Plan: began with left facial swelling that spread to left submandibular region and left neck with enlarged tonsil and uvula, left ear pain last week prompting PCP visit on 12/09 started Augmentin x 4-5 days without much relief, still with trismus fairly significant today, still with some pain but swelling has improved somewhat left side of face had subjective fevers/chills at home prior to admission but also dealing with possible acute cholangitis as above LFTs with cholestatic picture, possible acute cholangitis but also could have reaction to Augmentin? LFTs trending downward now +swelling left buccal mucosa with possible obstruction of parotid duct seen -continue IV Zosyn -check STAT CT neck soft tissue with scan up through left parotid gland-discuss ed with Dr. Arthur of Radiology -may need OMFS consultation (3) Trismus: Plan: as above, checking CT neck (4) Hyponatremia: Plan: Improved today with IVF hydration, probably from hypovolemia due to recent N/V, poor po intake follow CMP continue IVFs Plan DVT proph-SCDs only, no Lovenox in case of surgical procedure Dispo-continued stay Admission and Anticipated Discharge Date Admission Date: December 14, 2022 Subjective Still with some epigastric pains coming and going. Still with inability to open his mouth fore than a small amount, pain and swelling in left side of face and neck slightly improved from previous but not much improved overall. No other acute concerns Review of Systems Review of Systems: All systems reviewed & are unremarkable except as noted in HPI & below Physical Exam Constitutional: WD/WN, vitals as above Eyes: PERRL, conjunctivae normal, anicteric sclerae ENMT: Nose: no external nose abnormality Mouth: + trismus (only able to open mouth with approx 3 cm of space between central incisors ); no tongue abnormality, no muffled voice, no TMJ abnormality, TMJ nontender and no drooling left tonsil mildly enlarged; left buccal mucosa with small lump palpable, no purulent drainage noted Respiratory: normal respiratory effort, lungs clear to auscultation Cardiovascular: RRR, no murmur, no edema Chest (Breasts): Chest: normal inspection of chest Gastrointestinal (Abdomen): Inspection/Auscultation: abdomen normal to inspection and normal bowel sounds; abdomen not distended Percussion/Palpation: + abdomen tender (mild in epigastric region) and abdomen soft; no guarding and no hepatosplenomegaly Musculoskeletal: Extremities: extremities normal to inspection; no cyanosis and no clubbing Skin: no rashes, warm and dry Neurologic: moves all extremities and awake; no focal motor deficits Psychiatric: A+Ox3, euthymic affect Lymphatic: no lymphedema Results & Data Results & Data Vital Signs (Past 12 Hours) Vital Signs Temp Pulse Resp BP Pulse Ox O2 Del Method 12/15/22 07:16 37 C 80 18 121/77 94 Room Air Laboratory Results CBC, CMP, EBV panel reviewed PG Care Time/CCT Total # of Minutes Spent Total Time Spent with Patient: Total time spent is greater than 50% in coordination of care (as documented) at patient's floor/unit and/or counseling patient: Coding Level of Care Code 44972 SUB INP/OBS CARE 3/50MIN Diagnoses Elevated LFTs R79.89 Parotitis K11.20 Trismus R25.2 Hyponatremia E87.1
[2022-12-15] MEDS ORDERED: OPTIRAY 350 100ml IV ONE (13:22)
--- NOTE | 2022-12-15 13:58 | CT Scan Report ---
CT SCAN OF THE NECK WITH IV CONTRAST CLINICAL HISTORY: Left neck and facial swelling. Trismus. COMPARISON STUDY: No priors. TECHNIQUE: Following the IV administration of 94 cc of Optiray 350, CT scan of the soft tissues of th e neck was performed from the skull base to the upper chest. Images are reviewed in the axial, sagitt al, and coronal planes. IV contrast was administered without complication. A dose lowering techniqu e was utilized adhering to the principles of ALARA. CT DOSE: 548.21 mGycm FINDINGS: Pharynx: The pharyngeal soft tissues are normal as imaged. The pharyngeal airway is widely patent. Th ere is no evidence of mass lesion. The vocal cords are symmetric. The parapharyngeal fat is well main tained. The prevertebral/retropharyngeal soft tissues are within normal limits. The epiglottis is nor mal. Lymphadenopathy: There are prominent left cervical chain lymph nodes. The largest is seen on image #1 55 and measures 2.2 x 1.0 cm. Thyroid: Normal in size and attenuation. Salivary glands: The parotid and submandibular glands are within normal limits. Brain parenchyma: The visualized brain parenchyma at the skull base is normal in appearance. Vascular structures: The carotid arteries and jugular veins are patent bilaterally. Skeletal structures: Imaged portions of the calvarium at the skull base are within normal limits. The cervical spine appears intact. Orbits: The bony orbits are intact. Orbital contents are normal in appearance. Sinuses and mastoids: There is [id number] mucosal thickening within the left maxillary antrum. Mild mucosal thickening is also seen within the ethmoid, sphenoid, and frontal sinuses. Trace mucosal thickening is noted in the right maxillary antrum. The mastoid air cells are well pneumatized. Lung apices: Visualized apical lung parenchyma is clear. IMPRESSION: 1. Prominent left cervical chain lymph nodes are nonspecific and likely reactive. Correlate clinicall y. 2. No acute inflammatory process is identified. No fluid collection is seen. ACT 112: Negative or not required by law. Electronically signed by: Bright Carlos M.D. 12/15/2022 1:57 PM
[2022-12-15] MEDS: PANTOprazole 40 MG in SYRINGE 0 ML IV SCH (13:59)
[2022-12-15] MEDS ORDERED: PROPOFOL IV EMULSION 10 MG/ML 20 ML VIAL IV ONE (14:04)
[2022-12-15] MEDS ORDERED: DEXAMETHASONE SOD INJ 4 MG/ML VIAL ONE (14:04)
[2022-12-15] MEDS ORDERED: ONDANSETRON INJ 2 MG/ML 2 ML VIAL ONE (14:04)
[2022-12-15] MEDS ORDERED: LIDOCAINE 2% MPF LOCAL 5 ML VIAL ONE (14:05)
[2022-12-15] MEDS ORDERED: MIDAZOLAM HCL 1 MG/ML 2ML VIAL ONE (14:05)
[2022-12-15] MEDS ORDERED: fentaNYL citrate PF 100 MCG/2 ML VIAL ONE (14:05)
[2022-12-15] MEDS ORDERED: SUCCINYLCHOLINE CHLORIDE 20 MG/ML 10 ML VIAL IV ONE (14:05)
[2022-12-15] MEDS ORDERED: ROCURONIUM BROMIDE 10 MG/ML 5 ML VIAL IV ONE (14:05)
--- NOTE | 2022-12-15 14:21 | Anesthesiology Consultation ---
Date of Service December 15, 2022 Assessment & Plan Chart Review Chart Review: Acceptable Risk for Surgery and Patient NOT seen in Pre Admission Testing Consults Requested none ASA ASA2 Proposed Anesthesia Anesthesia Type: General History Surgery Operation Date: 12/15/22 08:15 Proposed Procedures p Endoscopic Retrograde Cholangiopancreatogram - Elena Wilburn MD Height/Weight Height: 5 ft 11 in Weight: 86.1 kg Allergies Allergy/AdvReac Type Severity Reaction Status Date / Time No Known Allergies Allergy Unverified 12/14/22 12:15 Medications Home Medications Medication Instructions Recorded Confirmed Last Taken fluticasone propionate 50 1 spray intranasal DAILY PRN Nasal 03/11/21 12/14/22 Unknown mcg/actuation nasal Congestion spray,suspension (24 Hour Allergy Relief) amoxicillin 875 mg-potassium 1 tab PO BID 7 days #14 tabs 12/09/22 12/14/22 12/13/22 clavulanate 125 mg tablet ibuprofen 200 mg tablet (Advil) 400 - 600 mg PO TID PRN Pain 12/14/22 12/14/22 Unknown Active Medications Generic Name Dose Route Start Last Admin Trade Name Freq PRN Reason Stop Dose Admin Piperacillin Sod/Tazobactam 115 mls @ 28.75 mls/hr 12/14/22 17:00 12/15/22 14:03 Sod 3.375 gm/ Dextrose IV 12/24/22 16:59 Infused Q8H AILYN Infusion Protocol Lactated Ringer's 1,000 mls @ 125 mls/hr 12/14/22 16:00 12/15/22 13:59 Lr IV 01/13/23 15:59 125 mls/hr .Q8H AILYN Administration Pantoprazole Sodium 40 mg/ 10 mls @ 5 mls/min 12/15/22 13:00 12/15/22 13:59 Syringe IV 01/14/23 12:59 5 mls/min DAILY@1100 AILYN Administration Past Medical History Medical History Elevated LFTs No pertinent past medical history Exercise / Class Metabolic Activity II 4-5 Yardwork/Stairs/Walk up hill Past Family History Family History Grandmother (Maternal) Colorectal cancer Grandfather (Paternal) Leukemia Mother Hypertension Denies family history of Ovarian cancer Prostate cancer Myocardial infarction Breast cancer Past Surgical History Surgical History No pertinent past surgical history Past Anesthesia History No Hx of Anesthesia Complications and No Family Hx of Anesthesia Complications History of PONV No Hx of PONV and No Hx of Motion Sickness Social History Smoking Status: Never smoker Hx Alcohol Use: No Hx Substance Use: No Physical Exam Vital Signs Last Vital Signs Temp 37 C 12/15/22 07:16 Pulse 80 12/15/22 07:16 Resp 18 12/15/22 07:16 BP 121/77 12/15/22 07:16 Pulse Ox 94 12/15/22 07:16 O2 Del Method Room Air 12/15/22 07:16 Testing Laboratory Results 12/15/22 06:16 12/15/22 06:16 PT 10.9 Seconds (9.0-12.0) 12/14/22 09:58 INR 1.0 (0.9-1.1) 12/14/22 09:58 Urine Color Dark Yellow 12/14/22 16:40 Urine Appearance Clear (Clear) 12/14/22 16:40 Urine pH 7.5 (4.5-7.5) 12/14/22 16:40 Ur Specific [place] > 1.045 (1.000-1.030) H 12/14/22 16:40 Urine Protein Negative (Negative) 12/14/22 16:40 Urine Glucose (UA) Negative (Negative) 12/14/22 16:40 Urine Ketones Trace (Negative) H 12/14/22 16:40 Urine Nitrite Positive (Negative) A 12/14/22 16:40 Ur Leukocyte Esterase Negative (Negative) 12/14/22 16:40 Urine WBC (Auto) 1-5 /hpf (0-5) 12/14/22 16:40 Urine RBC (Auto) 0-4 /hpf (0-4) 12/14/22 16:40 U Hyaline Cast (Auto) 0 /lpf (0-5) 12/14/22 16:40 U Epithel Cells (Auto) 0-5 /lpf (0-5) 12/14/22 16:40 Urine Bacteria (Auto) Negative (Negative) 12/14/22 16:40
--- NOTE | 2022-12-15 14:45 | History & Physical Bridge Note ---
Date of Service December 15, 2022 History & Physical Bridge Note I have examined the patient, reviewed the History & Physical and in the interval since the performance of the History & Physical I have noted the following changes of clinical significance: no changes noted EUS/ERCP. Patient was explained in detail regarding risks, benefits, limitations and alternatives of the above endoscopic procedure. Risks of intravenous sedation used for procedure were also explained. Risks include, but not limited to perfor ation, bleeding, infection, respiratory distress, cardiac arrest and . Patient is also aware about the possibility of missed lesion. Patient's questions were answered. The patient verbalized understanding the information and agreed to undergo the procedure.
[2022-12-15] MEDS ORDERED: INDOMETHACIN 50 MG SUPP PR ONE (14:51)
[2022-12-15] MEDS ORDERED: LARYING-O-JET KIT (LTA) ONE (15:20)
[2022-12-15] MEDS ORDERED: HEPARIN SOD (PORCINE) 1000 UNIT/ML ONE (15:28)
[2022-12-15] MEDS ORDERED: HEPARIN 100 UNIT/ML 5ML FLUSH ONE (15:28)
[2022-12-15] MEDS ORDERED: ARTIFICIAL TEARS OP OINT 3.5 GM TUBE ONE (15:49)
--- NOTE | 2022-12-15 15:50 | Operative Report ---
Post Operative Report Pre & Post Diagnosis Operation Date: 12/15/22 08:15 Pre-Op Diagnosis: ACUTE CHOLANGITIS I identified the patient and participated in the time-out.: Yes Procedure Operation Date: 12/15/22 08:15 <No data on this case meets the specified criteria> Surgeon Elena Wilburn MD Tile Layer Helper None Estimated Blood Loss 0 Findings See Below (Normal CBD. Enlarged LN) Specimens Liver Bx and LN Bx Description of Procedure EUS I attest to the content of the Intraoperative Record and any orders documented therein. Any exceptions are noted below.
--- NOTE | 2022-12-15 15:58 | GI REPORT ---
Patient Name: Melvin Denney Procedure Date: 12/15/2022 2:24 PM Date of : 1995 Admit Type: Inpatient Age: 27 Gender: Male Attending MD: Elena Wilburn MD, Procedure: Upper GI endoscopy Providers: Elena Wilburn MD Referring MD: Michell Avendaño Md Indications: Abdominal pain Medicines: General Anesthesia Complications: No immediate complications. Estimated Blood Loss: Estimated blood loss: none. Procedure: Pre-Anesthesia Assessment: - Prior to the procedure, a History and Physical was performed, and patient medications, allergies and sensitivities were reviewed. The patient's tolerance of previous anesthesia was reviewed. - The risks and benefits of the procedure and the sedation options and risks were discussed with the patient. All questions were answered and informed consent was obtained. - Patient identification and proposed procedure were verified prior to the procedure by the physician and the nurse. The procedure was verified in the procedure room. - Pre-procedure physical examination revealed no contraindications to sedation. After obtaining informed consent, the endoscope was passed under direct vision. Throughout the procedure, the patient's blood pressure, pulse, and oxygen saturations were monitored continuously. The Endoscope was introduced through the mouth, and advanced to the second part of duodenum. The upper GI endoscopy was accomplished without difficulty. The patient tolerated the procedure well. Findings: A small hiatal hernia was found. The proximal extent of the gastric folds (end of tubular esophagus) was 38 cm from the incisors. The hiatal narrowing was 40 cm from the incisors. [place]-colored mucosa was present. The maximum longitudinal extent of these esophageal mucosal changes was 2 cm in length. Biopsies were taken with a cold forceps for histology. Verification of patient identification for the specimen was done by the physician and nurse using the patient's name and date. The entire examined stomach was normal. The duodenal bulb and second portion of the duodenum were normal. Impression: - Small hiatal hernia. - [place]-colored mucosa suspicious for short-segment Mohr's esophagus. Biopsied. - Normal stomach. - Normal duodenal bulb and second portion of the duodenum. Recommendation: - Await pathology results. - Follow an antireflux regimen. - Use a proton pump inhibitor PO daily. - Repeat upper endoscopy for surveillance based on pathology results. - Perform an upper endoscopic ultrasound (UEUS) today. Elena Wilburn MD 12/15/2022 3:58:33 PM This report has been signed electronically. Note Initiated On: 12/15/2022 2:24 PM Number of Addenda: 0 I attest to the content of the Intraoperative Record and orders documented therein, exceptions below {[id number]}
--- NOTE | 2022-12-15 16:05 | GI REPORT ---
Patient Name: Melvin Denney Procedure Date: 12/15/2022 2:23 PM Date of : 1995 Admit Type: Inpatient Age: 27 Gender: Male Attending MD: Elena Wilburn MD, Procedure: Upper EUS Providers: Elena Wilburn MD Referring MD: Michell Avendaño Md Indications: Elevated liver enzymes, Suspected choledocholithiasis Medicines: General Anesthesia Complications: No immediate complications. Estimated Blood Loss: Estimated blood loss: none. Procedure: Pre-Anesthesia Assessment: - Prior to the procedure, a History and Physical was performed, and patient medications, allergies and sensitivities were reviewed. The patient's tolerance of previous anesthesia was reviewed. - The risks and benefits of the procedure and the sedation options and risks were discussed with the patient. All questions were answered and informed consent was obtained. - Patient identification and proposed procedure were verified prior to the procedure by the physician and the nurse. The procedure was verified in the procedure room. - Pre-procedure physical examination revealed no contraindications to sedation. After obtaining informed consent, the endoscope was passed under direct vision. Throughout the procedure, the patient's blood pressure, pulse, and oxygen saturations were monitored continuously. The scope was introduced through the mouth, and advanced to the second part of duodenum. The upper EUS was accomplished without difficulty. The patient tolerated the procedure well. Findings: ENDOSONOGRAPHIC FINDING: : There was no sign of significant endosonographic abnormality in the ampulla. No masses were identified. There was no sign of significant endosonographic abnormality in the common bile duct. The maximum diameter of the duct was 4 mm. No stones and no biliary sludge were identified. There was no sign of significant endosonographic abnormality in the gallbladder. No stones and no biliary sludge were identified. There was no sign of significant endosonographic abnormality in the visualized portion of the liver. Homogeneous parenchyma was identified. Fine needle biopsy was performed. Color Doppler imaging was utilized prior to needle puncture to confirm a lack of significant vascular structures within the needle path. One pass was made with the 19 gauge ultrasound core biopsy needle using a transgastric approach. A visible core of tissue was obtained. Verification of patient identification for the specimen was done by the physician and nurse using the patient's name and date. Pancreatic parenchymal abnormalities were noted in the entire pancreas. These consisted of hyperechoic strands and hyperechoic foci. PD measured 2 mm in diameter. Many enlarged lymph nodes were visualized in the celiac region (level 20) and rebeka hepatis region. The largest measured 20 mm in maximal cross-sectional diameter. The nodes were oval, hypoechoic and had well defined margins. Fine needle aspiration for cytology was performed. Color Doppler imaging was utilized prior to needle puncture to confirm a lack of significant vascular structures within the needle path. Four passes were made with the 25 gauge needle using a transduodenal approach. A stylet was used. A receiving inspector was present and performed a preliminary cytologic examination. The cellularity of the specimen was adequate. Final cytology results are pending. There was no sign of significant endosonographic abnormality in the visualized portion of the left adrenal gland. There was no sign of significant endosonographic abnormality involving the celiac trunk. Impression: - There was no sign of significant pathology in the ampulla. - There was no sign of significant pathology in the common bile duct. No stones. - There was no sign of significant pathology in the gallbladder. - There was no evidence of significant pathology in the visualized portion of the liver. Fine needle biopsy performed. - Pancreatic parenchymal abnormalities consisting of hyperechoic strands and hyperechoic foci were noted in the entire pancreas. - Many enlarged lymph nodes were visualized in the celiac region and rebeka hepatis region. Fine needle aspiration performed. - Endosonographic images of the left adrenal gland were unremarkable. - The celiac trunk was endosonographically normal. Recommendation: - Return patient to [facility] for [facility] care. - Await cytology results and await path results. COMMENT: The abnormal LFTs are likely related to a viral illness. Elena Wilburn MD 12/15/2022 4:04:21 PM This report has been signed electronically. Note Initiated On: 12/15/2022 2:23 PM Number of Addenda: 0 I attest to the content of the Intraoperative Record and orders documented therein, exceptions below {[id number]}
[2022-12-15] MEDS ORDERED: PROMETHAZINE HCL 12.5 MG in SODIUM CHLORIDE 0.9% 50 ML IV PRN (16:21)
[2022-12-15] MEDS ORDERED: LABETALOL HCL IV 5 MG/ML 20ML IV PRN (16:21)
[2022-12-15] MEDS ORDERED: FLUMAZENIL 0.1 MG/1 ML 10 ML VIAL IV PRN (16:21)
[2022-12-15] MEDS ORDERED: NALOXONE HCL 0.4 MG/1 ML VIAL/CARP IV PRN (16:21)
[2022-12-15] MEDS ORDERED: ONDANSETRON INJ 2 MG/ML 2 ML VIAL IV PRN (16:21)
[2022-12-15] MEDS ORDERED: ePHEDrine sulfate 50 MG/ML AMP IV PRN (16:21)
[2022-12-15] MEDS ORDERED: ATROPINE SULFATE 0.1 MG/ML 10ML SYR IV PRN (16:21)
[2022-12-15] MEDS ORDERED: fentaNYL citrate PF 100 MCG/2 ML VIAL IV PRN (16:21)
--- NOTE | 2022-12-15 16:27 | Anesthesiology Progress Note ---
Date of Service December 15, 2022 Anesthesia Post Procedure Vital Signs Vital Signs: Temp Pulse Pulse Resp BP Pulse Ox O2 Del Method 12/15/22 16:20 76 16 144/88 H 95 Room Air 12/15/22 16:10 92 H 18 148/83 H 95 Oxymask 12/15/22 16:04 36.1 C L 92 H 18 141/86 H 95 Oxymask 12/15/22 14:31 37 C 75 20 141/91 H 97 Room Air 12/15/22 07:16 37 C 80 18 121/77 94 Room Air 12/14/22 21:41 37.0 C 66 18 121/75 96 Room Air O2 Flow Rate 12/15/22 16:20 12/15/22 16:10 5 12/15/22 16:04 5 12/15/22 14:31 12/15/22 07:16 12/14/22 21:41 Transfer of Care Handoff Completed per policy Notes Mental Status: alert / awake / arousable Patient Amnestic to Procedure: Yes Nausea / Vomiting: adequately controlled Pain: adequately controlled Airway Patency, RR, SpO2: stable & adequate BP & HR: stable & adequate Hydration State: stable & adequate Anesthetic Complications: no major complications apparent
[2022-12-16] MEDS: PIPERACILLIN/TAZOBACTAM 3.375 GM in DEXTROSE 5% 100 ML IV SCH ×2 (01:04→08:04)
[2022-12-16] MEDS: LACTATED RINGER'S 1,000 ML IV SCH ×2 (01:04→09:50)
[2022-12-16 09:25] LABS: Basophils # (auto) 0.03 K/uL (0-0.2); Basophils % (auto) 0.3 %; Eosinophils # (auto) 0.15 K/uL (0-0.50); Eosinophils % (auto) 1.4 %; Hematocrit (blood only) 41.4 % (42.0-52.0); Hemoglobin 14.1 g/dl (14.0-18.0); Immature Granulocytes # (auto) 0.11 K/uL (0.01-0.20); Immature Granulocytes % (auto) 1.1 %; Lymphocytes # (auto) 1.71 K/uL (1.2-3.4); Lymphocytes % (auto) 16.4 %; Mean Corpuscular Hemoglobin 29.4 pg (25.0-34.0); Mean Corpuscular Hgb Conc 34.1 g/dL (32.0-36.0); Mean Corpuscular Volume 86.4 fL (80.0-100.0); Mean Platelet Volume 10.3 fL (9.4-12.4); Monocytes # (auto) 0.48 K/uL (0.11-0.59); Monocytes % (auto) 4.6 %; Neutrophils # (auto) 7.93 K/uL (1.40-6.50); Neutrophils % (auto) 76.2 %; Platelet Count 229 K/uL (130-400); RDW Coefficient of Variation 12.4 % (11.5-14.5); RDW Standard Deviation 39.2 fL (36.4-46.3); Red Blood Count 4.79 M/uL (4.70-6.10); White Blood Count 10.41 K/ul (4.8-10.8)
[2022-12-16 09:51] LABS: Albumin Level 3.7 gm/dl (3.4-5.0); BUN Creatinine Ratio 10.3 (10-20); Bilirubin Direct 1.2 mg/dl (0-0.2); Bilirubin,Total 2.7 mg/dl (0.2-1.0); Calcium 9.1 mg/dl (8.6-10.3); Creatinine Clr Calc Pharmacy 134.6 ml/min; Est GFR (African American) 136.1 ml/min; Est GFR (Non-African American) 117.5 ml/min; Potassium 3.4 mmol/L (3.5-5.1); Total Protein 6.4 gm/dl (6.0-8.3)
[2022-12-16] MEDS: PANTOprazole 40 MG in SYRINGE 0 ML IV SCH (10:47)
--- NOTE | 2022-12-16 11:17 | Gastroenterology Progress Note ---
Date of Service December 16, 2022 Assessment & Plan (1) Hyperbilirubinemia: Plan: No choledocholithiasis was found. Diagnosis which is most likely at this point is a viral hepatitis. Negative so far for hepatitis A, B, and C and mono. Other viral studies are pending. LFTs may also have increased secondary to Augmentin use. (2) Elevated LFTs: Plan 1. Regular diet 2. We will review serology cytology result when available 3. LFTs should be checked at least weekly till resolution. 4. No GI contraindication to discharge today Admission and Anticipated Discharge Date Admission Date: December 14, 2022 Supervising Physician Co-Signing Physician Notes ERCP done as eus showed no abnormalities in cbd. ? viral etiology of elevated lft's and lymphadenopathy. s/p biopsies of liver and also fna of lymph nodes. Agree with pe as documented. Agree with further plan of care as documented. Subjective 27 yr male Admitted 12/15 for vague abd pain, nausea, fatigue. Had swollen left facial cheek and lymph nodes since last week, improving. Was on Augmentin from last Monday through this Monday. Today, overall he feels much better. Much more energy. Able to eat well, passing bowel movement without any abdominal pain. No yellow eyes or skin. No fevers chills sweats. EUS yesterday without stones. Enlarged celiac region nodes were FNA done, pending. ERCP was deferred. LFTs much improved T. bili 4.9 yesterday-> 2.9 today, AST 120->76, ALT 276->213, alk phos is minimally increased from 176 yesterday to 179 today. Viral studies hep ABC negative Monospot negative; the studies are pending mumps, parvovirus, CMV, HSV. Review of Systems Review of Systems: ROS: Gen: Denies weakness, fevers, weight loss Eyes: No eye redness, or pain, no recent vision changes Resp: No SOB, no cough Cardio: No palpitations/irregular beats, no chest pain GI: No abdominal pain, no nausea/vomiting : Denies pain on urination Skin: No jaundice, itching or new rashes Physical Exam Constitutional: well developed and cooperative Eyes: PERRL, conjunctivae normal, anicteric sclerae Neck: trachea midline, no thyromegaly mildly enlarged, tender left ant cervical nodes noted. Respiratory: normal respiratory effort, lungs clear to auscultation Cardiovascular: RRR, no murmur, no edema Gastrointestinal (Abdomen): Inspection/Auscultation: abdomen normal to inspection and + hypoactive bowel sounds; abdomen not distended Percussion/Palpation: + abdomen tender (Mild upper abd tederess. No signs of acute abdomen.) and abdomen soft; no guarding and abdomen not rigid Skin: no rashes, warm and dry Neurologic: PERRL, EOMI, accommodation nl, no face palsy, no dysarthria Psychiatric: A+Ox3, euthymic affect Lymphatic: no cervical or axillary lymphadenopathy Results & Data Vital Signs (Past 12 Hours) Vital Signs Temp Pulse Resp BP Pulse Ox O2 Del Method 12/16/22 08:06 36.7 C 73 16 138/77 99 Room Air 12/16/22 03:55 37 C 68 16 119/70 96 Room Air 12/15/22 23:40 36.9 C 61 18 118/74 94 Room Air Laboratory Results WBC 10, Hb 14, HCT 41, PLT S229, NA 138, K3.4, CL 101, CO2 31, BUN 9, CR 0.87, glucose 137. See HPI for LFTs. Diagnostic Findings EUS 12/15/22: - There was no sign of significant pathology in the ampulla. - There was no sign of significant pathology in the common bile duct. No stones. - There was no sign of significant pathology in the gallbladder. - There was no evidence of significant pathology in the visualized portion of the liver. Fine needle biopsy performed. - Pancreatic parenchymal abnormalities consisting of hyperechoic strands and hyperechoic foci were noted in the entire pancreas. - Many enlarged lymph nodes were visualized in the celiac region and rebeka hepatis region. Fine needle aspiration performed. - Endosonographic images of the left adrenal gland were unremarkable. - The celiac trunk was endosonographically normal. CTAP with IV for 1223: 1. Nonspecific gallbladder wall thickening is noted with inflammatory stranding within the rebeka hepatis surrounding the duodenum and extending into the pancreaticoduodenal groove. Findings may be secondary to acute cholecystitis versus duodenitis. 2. Mild wall thickening of the common bile duct is likely reactive. Correlate with laboratory analysis to exclude cholangitis. 3. Mild periportal lymphadenopathy, likely reactive. 4. No bowel obstruction or pneumoperitoneum. 5. Normal appendix. Neck US 12/15: Prominent left cervical chain lymph nodes are nonspecific and likely reactive. Correlate clinically. 2. No acute inflammatory process is identified. No fluid collection is seen.
[2022-12-16] MEDS ORDERED: POTASSIUM CHLORIDE 10 MEQ TABCR PO STA (13:36)
--- NOTE | 2022-12-16 17:05 | Discharge Summary ---
Date of Service December 16, 2022 Admission HPI Per Admitting Provider Melvin Denney is a 27 yo WM with no past medical history who presented to the ER today c/o RUQ abdominal pain, worse after eating with associated n/v. Patient reports that he started with nonspecific symptoms last of left facial swelling in the area of his parotid gland that was also associated with a sore throat and dry cough. He contacted his PCP, he was started on an empiric course of Augmentin and symptoms resolved after 2 days. On Monday into Monday, he began experiencing nausea, increased belching, and abdominal pain worse after eating. He notes that he wasn't really eating or drinking, felt more fatigued and feverish. He contacted his PCP on Monday for follow up and was seen on Monday12/13/22 and labwork was ordered. Patient contacted this AM on 12/14 and notified he had elevated LFTs including an elevated total bilirubin. He had a RUQ ultrasound which showed a mildly distended gallbladder w/o cholelithiasis or sonographic evidence of acute cholecystitis. No biliary ductal dilatation was reported. He reported feeling slightly better yesterday and attempted to have some chicken broth and drank 2 Ensures. Unfortunately, this morning, patient woke up and vomited. He subsequently presented to the ER today for further evaluation. His work up today demonstrates persistently elevated LFTs and total bilirubin of 6.1. He underwent a CT of his abdomen and pelvis which shows nonspe cific gallbladder wall thickening with inflammatory stranding within the rebeka hepatis surrounding the duodenum and extending into the pancreaticoduodenal groove as well as mild wall thickening of the common bile duct. He was medicated with a dose of Zosyn to cover for possible cholangitis, as well IVF and has been referred to the hospitalists for admission. Case has also been discussed with GI and general surgery. Principal Diagnosis Elevated LFTs Nausea/vomiting, abdominal pain Mohr's metaplasia Abnormal liver biopsy Left cervical lymphadenopathy Discharge Exam Constitutional WD/WN, vitals as above ENMT Nose: no external nose abnormality Mouth: + trismus (only able to open mouth with approx 3 cm of space between central incisors ); no tongue abnormality, no muffled voice, no TMJ abnormality, TMJ nontender and no drooling Neck normal visual inspection; neck nontender and no torticollis Thyroid: normal thyroid Respiratory normal respiratory effort, lungs clear to auscultation Cardiovascular RRR, no murmur, no edema Chest (Breasts) Chest: normal inspection of chest Gastrointestinal (Abdomen) normal bowel sounds, soft, nontender, no hepatosplenomegaly Musculoskeletal Extremities: extremities normal to inspection; no cyanosis and no clubbing Skin no rashes, warm and dry Neurologic moves all extremities and awake; no focal motor deficits Psychiatric A+Ox3, euthymic affect Lymphatic + cervical lymphadenopathy (Mild enlargement left cervical); no lymphedema Discharge Data Allergies Allergy/AdvReac Type Severity Reaction Status Date / Time No Known Allergies Allergy Unverified 12/14/22 12:15 Consultations 12/14/22 12:56 Consult Gastroenterology Stat Consult General Surgery Stat ED Decision to Admit Stat 12/15/22 14:21 Consult Oromaxillofacial Surgery Routine Procedures Performed Operation Date: 12/15/22 08:15 Actual Procedures p Esophagogastroduodenoscopy with biopsy - Elena Wilburn MD s Endoscopic Ultrasonography Upper - Elena Wilburn MD Ordered Studies 12/14/22 09:47 CT abd pelvis IV con only Stat 12/15/22 12:30 CT neck soft tissues [CT soft tissue neck w con] Stat 12/15/22 14:18 US upper EUS PACS images Routine Hospital Course (1) Elevated LFTs: 27 yo M with elevated LFTs in cholestatic pattern with worsening abdominal pain and N/V, fevers/chills, leukocytosis after eating concerning for acute cholecystitis +/- cholangitis RUQ US normal CT abd/pel with: Nonspecific gallbladder wall thickening is noted with inflammatory stranding within the rebeka hepatis surrounding the duodenum and extending into the pancreaticoduodenal groove. Findings may be secondary to acute cholecystitis versus duodenitis.Mild wall thickening of the common bile duct is likely reactive. Correlate with laboratory analysis to exclude cholangitis.Mild periportal lymphadenopathy, likely reactive. 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 EUS was negative for biliary obstruction. Liver biopsy and rebeka hepatis lymph node biopsy performed. Pancreas is described as being abnormal, but confirmed with GI that this is a normal variant. Monospot neg, EBV panel shows old infection, Hepatitis viral panel negative, APAP level negative, lipase normal x2 Has a h/o elevated AST and ALT only in 2020 thought to be from EtOH use. No fatty liver on US or CT Initially thought to be acute jamison/cholangitis but could also be medication reaction to Augmentin, versus viral infection-parvovirus, CMV, mumps, HSV all pending at the time of discharge Liver biopsy did come back on the day of discharge with abnormalities that could be consistent with PBC. Rebeka hepatis lymph node biopsy still pending at the time of discharge Acute cholecystitis cholangitis ruled out-no further antibiotics needed LFTs continue to be trending back towards normal and patient is feeling much improved at the time of discharge. He is tolerating a regular diet, no nausea/vomiting, no epigastric abdominal pain, moving bowels regularly. -Appreciate GI consult-needs ongoing follow-up with hepatology after discharge for abnormal liver biopsy and elevated LFTs as potentially could be related to PBC or even PSC -follow LFTs as an outpatient in 1 week until trend back to normal -No need for cholecystectomy (2) Parotitis: began with left facial swelling that spread to left submandibular region and left neck with enlarged tonsil and uvula, left ear pain last week prompting PCP visit on 12/09 started Augmentin x 4-5 days without much relief, still with trismus fairly significant today, still with some pain but swelling has improved somewhat left side of face had subjective fevers/chills at home prior to admission but also dealing with possible acute cholangitis as above CT of face and soft tissues of the neck performed on 12/15 which did show left cervical lymphadenopathy with largest lymph node being 2.2 cm Parotid gland appears normal, no dental infection OMFS consultation appreciated-no clear cause of trismus Could be muscle tightness in the jaw from lymphadenopathy? Follow-up with OMFS if does not improve as an outpatient as discussed with patient No further antibiotics needed as had 5 days of Augmentin prior to admission followed by 2 days of IV Zosyn (3) Trismus: as above (4) Hyponatremia: Improved with IVF hydration, probably from hypovolemia due to recent N/V, poor po intake (5) Mohr esophagus: Continue Protonix 40 mg p.o. once daily indefinitely We will need surveillance EGDs Plan DVT proph-SCDs Dispo-stable for discharge home Discussed all care with patient and his girlfriend and mother at the bedside Needs close follow-up with GI/hepatology as an outpatient-I discussed this with GI nurse practitioner who will make arrangements for an appointment Total Time Total Time Spent Total Time Spent (In Minutes): 45 min Discharge Plan Discharge Items Patient Disposition: Home - Self-Care Reason For Visit: ACUTE CHOLANGITIS Discharge Diagnosis: Elevated LFTs Nausea/vomiting, abdominal pain Mohr's metaplasia Abnormal liver biopsy Left cervical lymphadenopathy Condition on Discharge: Good Activity: Resume your previous activity Non-emergency contact: Primary Care Provider and Water Taxi Captain Call non-emergency contact if: you have any medication questions and your symptoms worsen Follow-up/Referrals: Anton Jain CRNP [Primary Care Provider] - 12/23/22 9:40 am (WITH ARNOLD SEHRMAN) Christine Reece DO [Physician] - (Follow up with the Division Operations Manager at [facility] within 2-3 weeks.) Diet: Regular Addtl Attending Provider Instructions: You were admitted with nausea,vomiting, abdominal pain, and elevated liver function tests. You had a workup and were found to have Mohr's esophagus and an esophageal ulcer on biopsy. For this you will need to take Protonix indefinitely and have surveillance EGDs periodically. Your LFTs did improve each day-this should be followed until they return to normal. You had an Endoscopic ultrasound with biopsies of the liver and rebeka hepatis lymph nodes. The liver biopsy is showing some abnormalities that need to be further addressed with a Division Operations Manager. The lymph node biopsy is still pending. This may have been either from a viral infection or a reaction to the antibiotic you took for parotitis. There is however a chance you may have a more chronic liver condition. Again, you will need to follow up with the liver specialist for this as an outpatient. There are also still some viral studies pending at the time of discharge to include CMV, Parvovirus, and Mumps. For your enlarged lymph nodes in the neck, please have your PCP order a follow up ultrasound in about 4 weeks to ensure they are returning back to normal size. You do not need any further antibiotics. If your jaw stiffness does not improve with time, please return back to see Dr. Pascual of Oromaxillary Facial Surgery for further evaluation. Pending Studies at Discharge: Yes Stand-Alone Forms: My [employer], Work/School Release Medications and DC Order Prescriptions: New pantoprazole [Protonix] 40 mg tablet,delayed release (DR/EC) 40 mg PO DAILY Qty: 30 0RF Continued fluticasone propionate [24 Hour Allergy Relief] 50 mcg/actuation spray,suspension 1 spray intranasal DAILY PRN (Reason: Nasal Congestion) Rx Instructions: administer into each nostril Discontinued amoxicillin-pot clavulanate 875-125 mg tablet 1 tab PO BID 7 Days Qty: 14 0RF Hold Instructions: Elevated LFT ibuprofen [Advil] 200 mg Tablet 400 - 600 mg PO TID PRN (Reason: Pain) Discharge Orders: Discharge Order (Routine); Ordered 12/16/22 Ordered By: Michell Avendaño Admission Data Admit Date/Time: 12/14/22 13:14 Attending Provider: Michell Avendaño Admit Provider: Isrrael Jones Primary Care Provider: Anton Jain Other Providers: Saulo Roberson ; Roscoe Dangelo ; Isrrael Jones ; Ari Pascual Other Interventions: Discharge Summary Assessment (RN) Last Done: 12/16/22 15:24 Coding Level of Care Code 40364 INP/OBS DISCH >30 MIN Diagnoses Elevated LFTs R79.89 Parotitis K11.20 Trismus R25.2 Hyponatremia E87.1 Mohr esophagus K22.70
[2022-12-18] MEDS ORDERED: oxyCODONE/ACETAMINOPHEN 5mg/325mg TAB PO PRN (10:06)
[2022-12-22 14:37] LABS: CMV IgM Antibody <30.00 AU/mL; Parvovirus IgG 3.6 (<0.9); Parvovirus IgM 0.1 (<0.9)
--- NOTE | 2022-12-24 05:51 | Coding Query ---
CODING QUERY To promote full compliance with coding requirements relating to patient care, provider participation is requested in all cases of federal aid coordinator uncertainty. Please assist us with the question(s) below: Coding Question(s): 27 y/o with no past medical hx admitted wtih RUQ abd pain after eating. U/S neg. EGD/EUS = short Mohr's . EUS biopsies of Liver and rebeka hepatis lymph node done. * Viral studies, pending at discharge now available. Please review and provide a diagnosis if applicable. Thanks for your help. Ryan Colindres , [facility] Physician's Response(s): Viral-induced cholangitis Principal Diagnosis: "that condition established after study, to be chiefly responsible for occasioning the admission of the patient to the hospital for care." Co-Existing Principal Diagnosis: "when two or more diagnoses equally meet the criteria for principal diagnosis as determined by the circumstances of admission, diagnostic work up, and/or therapy provided, and the Alphabetic Index, Tabular List, or another coding guideline does not provide sequencing direction, any one of the diagnoses may be sequenced first." "When the physician has documented what appears to be a current diagnosis in the body of the record, but has not included the diagnosis in the final diagnostic statement, the physician should be asked whether the diagnosis should be added." (Source Coding Clinic 2 QTR90. p3-4) ANDREW
--- NOTE | 2022-12-24 17:13 | Oral/Maxillofacial Consult ---
Date of Consultation December 15, 2022 History of Present Illness Attending Physician: Michell Avendaño MD History of Present Illness I was asked to see Melvin regarding his jaw trismus. 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 Parotitis: Plan: began with left facial swelling that spread to left submandibular region and left neck with enlarged tonsil and uvula, left ear pain last week prompting PCP visit on 12/09 started Augmentin x 4-5 days without much relief, still with trismus fairly significant today, still with some pain but swelling has improved somewhat left side of face had subjective fevers/chills at home prior to admission but also dealing with possible acute cholangitis, had ERCP I did a bedside evaluation on Christiano I see no evidence of any parotid or submandibular gland inflammation--salivary flow is clear and no pain upon palpation. There is still trismus is this inflammatory or myofacial induced? Teeth and periodontal condition = excellent Some tender cervical node swelling Overall I see no inflammatory issues that could be the cause of the trismus--I questioned Christiano regarding dental causes such as clenching, bruxism, stress ? I suggested - rest, heat, Ice, soft diet, massage Given the ? history of left facial swelling a week or so ago this could be related to that episode and will gradually improve over time. I reassured Christiano that I see no Parotid,dental or infectious process as the cause of this recent onset of trismus. CT SCAN OF THE NECK WITH IV CONTRAST CLINICAL HISTORY: Left neck and facial swelling. Trismus. FINDINGS: Pharynx: The pharyngeal soft tissues are normal as imaged. The pharyngeal airway is widely patent. There is no evidence of mass lesion. The vocal cords are symmetric. The parapharyngeal fat is well maintained. The prevertebral/retropharyngeal soft tissues are within normal limits. The epiglottis is normal. Lymphadenopathy: There are prominent left cervical chain lymph nodes. The l argest is seen on image #[id number] and measures 2.2 x 1.0 cm. Thyroid: Normal in size and attenuation. Salivary glands: The parotid and submandibular glands are within normal limits. Brain parenchyma: The visualized brain parenchyma at the skull base is normal in appearance. Vascular structures: The carotid arteries and jugular veins are patent bilaterally. Skeletal structures: Imaged portions of the calvarium at the skull base are within normal limits. The cervical spine appears intact. Orbits: The bony orbits are intact. Orbital contents are normal in appearance. Sinuses and mastoids: There is [id number] mucosal thickening within the left maxillary antrum. Mild mucosal thickening is also seen within the ethmoid, sphenoid, and frontal sinuses. Trace mucosal thickening is noted in the right maxillary antrum. The mastoid air cells are well pneumatized. Lung apices: Visualized apical lung parenchyma is clear. IMPRESSION: 1. Prominent left cervical chain lymph nodes are nonspecific and likely reactive. Correlate clinically. 2. No acute inflammatory process is identified. No fluid collection is seen. Allergies Allergy/AdvReac Type Severity Reaction Status Date / Time No Known Allergies Allergy Unverified 12/23/22 09:39 Home Medications Medication Instructions Recorded Confirmed Type fluticasone propionate 50 1 spray intranasal DAILY PRN Nasal 03/11/21 12/23/22 History mcg/actuation nasal Congestion spray,suspension (24 Hour Allergy Relief) pantoprazole 40 mg tablet,delayed 40 mg PO DAILY #90 tabs 12/23/22 12/23/22 Rx release (Protonix) Patient History Medical History Mohr esophagus Elevated LFTs Surgical History No pertinent past surgical history Family History Grandmother (Maternal) Colorectal cancer Grandfather (Paternal) Leukemia Mother Hypertension Denies family history of Ovarian cancer Prostate cancer Myocardial infarction Breast cancer Social History Smoking Status: Never smoker Second Hand Exposure: No; Hx Alcohol Use: No Hx Substance Use: No Preferred Language: Martiniquais Communication Ability: Effective Visual Impairment: No Limitations Hearing Ability: Normal Salvage Engineer Required: No Beliefs That Will Affect Care: None marital status: single Current Living Situation: Significant Other current occupational status: student How many Children do You have: 0 Feels Safe at Home: Yes Childhood Exposure to Second-Hand Smoke: No caffeine: Yes (tea) during the past year weight has: remained stable Dental Care, Regularly: Yes Physical Activity Frequency: 3-4 Times per Week Physical Activity Frequency Comment: cardio/ weight lifting Seatbelt Use: always Sunscreen Use: Yes Assistive Devices: Glasses PG Care Time/CCT Total # of Minutes Spent Total Time Spent with Patient: Total time spent is greater than 50% in coordination of care (as documented) at patient's floor/unit and/or counseling patient: Coding Level of Care Code 49737 IN/OBS CONSULT LVL 2,35M Diagnoses
== END 2022-12-16 16:05 | disposition home or self-care (01) | DRG 421 ==
LOC: ED 09:26 → 3E 13:14 → SUATTDRO 13:14 → 3E 18:10